=== PATIENT | male | born 1990 | race Two or more races ===

== ENCOUNTER 2018-08-22 15:34 | Emergency (ER) | payer MEDICAID, OTHER, SELFPAY ==
[~2018-08-22] VITALS: Ht 180.3 cm; Wt 80.6 kg
--- NOTE | 2018-08-22 16:08 | NUR ---
LABS DRAWN, URINE COLLECTED/SENT TO LAB. PT REPORTS NO MED HX EXCEPT BEING TOLD BY "YEARS AGO" TO SEE A UROLOGIST FOR BLOOD IN URINE. PT STATES HE DID NOT FOLLOW UP. PAIN PRIMARILY AT PENIS AND WORSENING WITH URINATION AND BM. SOME BLADDER PAIN WELL. PT DENIES F/C, N/V/D. CALL LIGHT WITHIN REACH, ERP IN TO SEE PT.
[2018-08-22 16:21] LABS: BASOPHILS # (AUTO) 0.04 x10^3/uL (0-0.1); BASOPHILS % (AUTO) 0 % (0-1); EOSINOPHILS # (AUTO) 0.05 x10^3/uL (0-0.4); EOSINOPHILS % (AUTO) 0 % (1-7); LYMPHOCYTES # (AUTO) 2.81 x10^3/uL (1-3.4); LYMPHOCYTES % (AUTO) 26 % (22-44); MD NO; MEAN CORPUSCULAR HEMOGLOBIN 31.7 pg (27.5-34.5); MEAN CORPUSCULAR HGB CONC 34.5 g/dL (33.2-36.2); MEAN CORPUSCULAR VOLUME 91.9 fL (81-97); MEAN PLATELET VOLUME 8.5 fL (7.4-10.4); MONOCYTES # (AUTO) 0.63 x10^3/uL (0.2-0.8); MONOCYTES % (AUTO) 6 % (2-9); NEUTROPHILS # (AUTO) 7.41 x10^3/uL (1.8-6.8); NEUTROPHILS % (AUTO) 68 % (42-75); PLATELET COUNT 233 x10^3/uL (130-400); RED BLOOD COUNT 5.16 x10^6/uL (4.38-5.82); RED CELL DISTRIBUTION WIDTH 12.9 % (9.4-14.8)
[2018-08-22 16:26] LABS: ALBUMIN 5.2 g/dL (3.4-5.0); ANION GAP 6 mmol/L (5-15); CALCIUM 9.3 mg/dL (8.5-10.1); CHLORIDE 108 mmol/L (98-107)
[2018-08-22 16:30] LABS: ALANINE AMINOTRANSFERASE 22 U/L (12-78); ALKALINE PHOSPHATASE 75 U/L (45-117); BILIRUBIN,TOTAL 0.7 mg/dL (0.2-1.0); CREATININE 1.16 mg/dL (0.7-1.3); TOTAL PROTEIN 8.4 g/dL (6.4-8.2)
[2018-08-22 16:34] LABS: MICROSCOPIC NOT IND
[2018-08-22 16:43] LABS: CULTURE INDICATED? NO
--- NOTE | 2018-08-22 17:00 | NUR ---
ALL RESULTS BACK, PT FOR RECHECK.
[2018-08-22 17:45] VITALS: BP 124/62
== END 2018-08-22 17:47 | disposition home or self-care (01) ==
LOC: ED 17:15
DX: N41.0 Acute prostatitis (principal)
CPT/HCPCS: 36415; 80053; 81003; 85025; 87491; 87591; 99283